=== PATIENT | female | born 1955 | race Caucasian/White ===

== ENCOUNTER 2016-07-09 18:16 | Emergency (ER) | payer OTHER ==
[~2016-07-09] VITALS: Ht 175.3 cm; Wt 74.8 kg
[~2016-07-09 18:16] MED LIST: EPIPEN0.3 MG/0.1 IJ; PEPCID20 MG PO; PREDNISONE 20 M20 MG PO; PROTONIX40 M4 PO; TUMS PO
[2016-07-09] MEDS ORDERED: PREDNISONE 20 M20 MG PO (19:52)
[2016-07-09 20:02] VITALS: BP 144/86
== END 2016-07-09 20:05 | disposition home or self-care (01) ==
LOC: ER 18:16
DX: T78.40XA Allergy, unspecified, initial encounter (principal); K21.9 Gastro-esophageal reflux disease without esophagitis; E03.9 Hypothyroidism, unspecified; Z88.0 Allergy status to penicillin; X58.XXXA Exposure to other specified factors, initial encounter

== ENCOUNTER 2018-10-30 13:54 | Emergency (ER) | payer OTHER | END 2018-10-31 14:49 | disposition left against medical advice (07) | LOC: ER 13:54 | DX: Z53.21 Procedure and treatment not carried out due to patient leaving prior to being seen by health care provider (principal) ==